=== PATIENT | female | born 1990 | race Caucasian/White ===

== ENCOUNTER 2018-02-26 00:07 | Emergency (ER) | payer OTHER ==
[~2018-02-26] VITALS: Ht 167.6 cm; Wt 75.0 kg
[2018-02-26 00:16] VITALS: BP 126/82; PULSE 112; RESP 12; TEMP 98.6
--- NOTE | 2018-02-26 00:26 | PD ---
HPI Chief Complaint: Suicide Ideation/Attempt Time Seen by Provider: 00:23 Travel History International Travel<30 days: No Contact w/Intl Traveler<30days: No Traveled to known affect area: No History of Present Illness HPI This patient was examined in the presence of the nurse at all times. 27-year- old female presents under Mccarty act initiated by the Police Department. According to her paperwork, "made suicidal statements to this officer and took 12 pills to attempt to take her life." Patient reports that she drank 5 beers tonight and she took 12 [id number] tablets. She reports that 6 of them were similar to Midol and then 6 of them were of an unknown medication over-the- counter. She took them at approximately 10:45 PM this evening in an attempt to kill herself. She reports that she tried to overdose once before, approximately 1 year ago, was not evaluated at that time. Symptoms are moderate , no obvious aggravating or relieving factors, onset unknown. She has no other complaints at this time. PFSH Past Medical History Hx Anticoagulant Therapy: No Cardiovascular Problems: No Chemotherapy: No Cerebrovascular Accident: No Developmental Delay: No Diabetes: No Diminished Hearing: No Respiratory: No Immunizations Current: Yes ?: Not : 1 Para: 1 Past Surgical History Section: Yes Hysterectomy: No Social History Alcohol Use: No Tobacco Use: No Substance Use: No Allergies-Medications (Allergen,Severity, Reaction): Coded Allergies: No Known Allergies (Verified Adverse Reaction, Unknown, 02/26/18) Reported Meds & Prescriptions Reported Meds & Active Scripts Active No Active Prescriptions or Reported Medications Review of Systems Except as stated in HPI: all other systems reviewed are Neg Physical Exam Narrative GENERAL: Well-developed well-nourished female no acute distress answering questions appropriately. SKIN: Warm and dry. HEAD: Atraumatic. Normocephalic. EYES: Pupils equal and round. No scleral icterus. No injection or drainage. ENT: No nasal bleeding or discharge. Mucous membranes pink and moist. NECK: Trachea midline. No JVD. CARDIOVASCULAR: Regular rate and rhythm. No murmur appreciated. RESPIRATORY: No accessory muscle use. Clear to auscultation. Breath sounds equal bilaterally. GASTROINTESTINAL: Abdomen soft, non-tender, nondistended. Hepatic and splenic margins not palpable. MUSCULOSKELETAL: No obvious deformities. No clubbing. No cyanosis. No edema. NEUROLOGICAL: Awake and alert. No obvious cranial nerve deficits. Motor grossly within normal limits. Normal speech. Data Data Last Documented VS Vital Signs Date Time Temp Pulse Resp B/P (MAP) Pulse Ox O2 Delivery O2 Flow Rate FiO2 02/26/18 00:41 Room Air 02/26/18 00:16 98.6 112 12 126/82 (97) Orders Orders Complete Blood Count With Diff (02/26/18 00:15) Comprehensive Metabolic Panel (02/26/18 00:15) Ed Urine Pregnancytest Poc (02/26/18 00:15) Psych Screen (02/26/18 00:15) Diet Regular Basic (02/26/18 Breakfast) Drug Screen, Random Urine (02/26/18 00:15) Alcohol (Ethanol) (02/26/18 00:15) Salicylates (Aspirin) (02/26/18 00:15) Tylenol (Acetaminophen) (02/26/18 00:15) Electrocardiogram (02/26/18 ) Electrocardiogram (02/26/18 ) Ecg Monitoring (02/26/18 00:26) ^ Sitter (02/26/18 00:31) Tylenol (Acetaminophen) (02/26/18 04:30) Salicylates (Aspirin) (02/26/18 04:30) Labs Laboratory Tests Test 02/26/18 00:10 02/26/18 00:30 02/26/18 04:07 Urine Opiates Screen NEG Urine Barbiturates Screen NEG Urine Amphetamines Screen NEG Urine Benzodiazepines Screen NEG Urine Cocaine Screen NEG Urine Cannabinoids Screen NEG White Blood Count 6.8 TH/MM3 Red Blood Count 4.52 MIL/MM3 Hemoglobin 14.1 GM/DL Hematocrit 41.5 % Mean Corpuscular Volume 91.8 FL Mean Corpuscular Hemoglobin 31.2 PG Mean Corpuscular Hemoglobin Concent 34.0 % Red Cell Distribution Width 13.5 % Platelet Count 286 TH/MM3 Mean Platelet Volume 7.3 FL Neutrophils (%) (Auto) 54.8 % Lymphocytes (%) (Auto) 36.7 % Monocytes (%) (Auto) 7.1 % Eosinophils (%) (Auto) 1.0 % Basophils (%) (Auto) 0.4 % Neutrophils # (Auto) 3.7 TH/MM3 Lymphocytes # (Auto) 2.5 TH/MM3 Monocytes # (Auto) 0.5 TH/MM3 Eosinophils # (Auto) 0.1 TH/MM3 Basophils # (Auto) 0.0 TH/MM3 CBC Comment DIFF FINAL Differential Comment Blood Urea Nitrogen 12 MG/DL Creatinine 0.69 MG/DL Random Glucose 118 MG/DL Total Protein 8.0 GM/DL Albumin 4.4 GM/DL Calcium Level 8.8 MG/DL Alkaline Phosphatase 49 U/L Aspartate Amino Transf (AST/SGOT) 12 U/L Alanine Aminotransferase (ALT/SGPT) 20 U/L Total Bilirubin 0.5 MG/DL Sodium Level 143 MEQ/L Potassium Level 3.6 MEQ/L Chloride Level 108 MEQ/L Carbon Dioxide Level 22.3 MEQ/L Anion Gap 13 MEQ/L Estimat Glomerular Filtration Rate 101 ML/MIN Salicylates Level 3.1 MG/DL 6.6 MG/DL Acetaminophen Level LESS THAN 2.0 MCG/ML 4.8 MCG/ML Ethyl Alcohol Level 200 MG/DL MDM Medical Decision Making Medical Screen Exam Complete: Yes Emergency Medical Condition: Yes Medical Record Reviewed: Yes Differential Diagnosis Major depressive disorder, depressive disorder not otherwise specified, bipolar disorder, acute psychosis, substance-induced mood disorder, adjustment reaction Narrative Course 27-year-old female presents under [place] act for psychiatric evaluation. She took 12 [id number] tablets at approximately 10:45 PM this evening in an attempt to kill herself. 6 of them she says are similar to Midol and 6 of them were of an unknown medication. The patient was placed on ECG monitoring pulse oximetry. A 12-lead EKG will be obtained. EKG reveals sinus tachycardia with a rate of 110, normal QT interval. Lab work will be obtained. Lab work reveals an alcohol level of 200. Initial Tylenol and salicylate levels are negative. A 4 hour repeat Tylenol level was obtained and it is 4.8 which is far below the level that would require treatment. The patient is medically cleared for psychiatric disposition. Diagnosis Primary Impression: Medical clearance for psychiatric admission Additional Impression: Alcohol abuse Scripts No Active Prescriptions or Reported Meds Arron Null Feb 26, 2018 00:26
[2018-02-26 00:41] LABS: AUTOMATED NEUTROPHIL # 3.7 TH/MM3 (1.8-7.7); BASOPHIL % 0.4 % (0.0-2.0); EOSINOPHIL # 0.1 TH/MM3 (0-0.4); HEMATOCRIT 41.5 % (35.0-46.0); HEMOGLOBIN 14.1 GM/DL (11.6-15.3); LYMPH % 36.7 % (9.0-44.0); LYMPHOCYTE # 2.5 TH/MM3 (1.0-4.8); MEAN CELL VOLUME 91.8 FL (80.0-100.0); MEAN CORPUSCULAR HEMOGLOBIN 31.2 PG (27.0-34.0); MEAN PLATELET VOLUME 7.3 FL (7.0-11.0); MONO % 7.1 % (0.0-8.0); MONOCYTE # 0.5 TH/MM3 (0-0.9); NEUT % 54.8 % (16.0-70.0); PLATELET COUNT 286 TH/MM3 (150-450); RED BLOOD COUNT 4.52 MIL/MM3 (4.00-5.30); RED CELL DISTRIBUTION WIDTH 13.5 % (11.6-17.2); WHITE BLOOD COUNT 6.8 TH/MM3 (4.0-11.0)
[2018-02-26 00:59] LABS: ALBUMIN 4.4 GM/DL (3.4-5.0); ALT (GPT) 20 U/L (10-53); AST (GOT) 12 U/L (15-37); BICARBONATE 22.3 MEQ/L (21.0-32.0); BLOOD UREA NITROGEN 12 MG/DL (7-18); CALCIUM 8.8 MG/DL (8.5-10.1); CHLORIDE 108 MEQ/L (98-107); CREATININE 0.69 MG/DL (0.50-1.00); GLOMERULAR FILTRATION RATE 101 ML/MIN (>89); GLUCOSE,RANDOM 118 MG/DL (74-106); SODIUM (NA) 143 MEQ/L (136-145)
[2018-02-26 01:02] LABS: ACETAMINOPHEN LESS THAN 2.0 MCG/ML (10.0-30.0); ALKALINE PHOSPHATASE 49 U/L (45-117); TOTAL BILIRUBIN ADULT 0.5 MG/DL (0.2-1.0)
[2018-02-26 06:20] VITALS: BP 119/68; PULSE 86; RESP 16; O2SAT 100
[2018-02-26 08:16] VITALS: BP 125/81; PULSE 91; RESP 18; O2SAT 98
[2018-02-26 12:23] LABS: AST (GOT) 13 U/L (15-37); BICARBONATE 21.1 MEQ/L (21.0-32.0); BLOOD UREA NITROGEN 10 MG/DL (7-18); CALCIUM 9.1 MG/DL (8.5-10.1); CHLORIDE 107 MEQ/L (98-107); CREATININE 0.71 MG/DL (0.50-1.00); GLOMERULAR FILTRATION RATE 97 ML/MIN (>89); GLUCOSE,RANDOM 102 MG/DL (74-106); SODIUM (NA) 140 MEQ/L (136-145)
[2018-02-26 12:24] LABS: ALT (GPT) 21 U/L (10-53)
[2018-02-26 12:26] LABS: ALKALINE PHOSPHATASE 50 U/L (45-117); TOTAL BILIRUBIN ADULT 0.5 MG/DL (0.2-1.0); TOTAL PROTEIN 7.7 GM/DL (6.4-8.2)
[2018-02-26 12:28] LABS: ACETAMINOPHEN LESS THAN 2.0 MCG/ML (10.0-30.0)
[2018-02-26 12:30] VITALS: BP 116/71; PULSE 71; RESP 18; O2SAT 97
--- NOTE | 2018-02-26 12:40 | PD ---
History of Present Illness Chief Complaint: Suicide Ideation/Attempt Time Seen by Provider: 11:40 Travel History International Travel<30 Days: No Contact w/Intl Traveler<30days: No Known affected area: No Legal Status Legal Status: Mccarty Act Mccarty Act Signed By: Chantal Solis History of Present Illness: History of Present Illness HPI 27-year-old, single, female, employed as a health care entry level recruiter, 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 Patient admitted to ED provider that she drank 5 beers and took 12 pwht-[id number] tablets of which 6 were similar to Midol and 6 where of an unknown OTC medication. The patient was medically cleared after her acetaminophen levels trended down to less than 2. Her blood alcohol level on arrival was 200. The patient was allowed to sober up clinically in secure environment. Nurses report state that the patient has not exhibited any suicidal behaviors. Electronic medical record is reviewed. No previous contact with [facility] psychiatry. Patient is seen. She is clinically sober. There is no evidence of any withdrawal symptoms. She is alert and cooperative. Speech is clear and logical. Adequate eye contact. Affect is tearful at times. Mood is sad. States that she is in the middle of a separation from her boyfriend of 8 years and is experiencing some stress related to that. She also states that when she drinks alcohol she tends to act on her impulsive thoughts. States that last night her and her boyfriend had been arguing about the separation. She does not state that she had planned to harm herself or that she has any plans on doing so. She states that she loves her children and would not do something like that to them. The patient admits to feeling anxious at times as well. She has recently started seeing a therapist to help her manage some of her feelings. There is no evidence of any psychosis, no eve, no hypomania. She is future oriented with adequate protective factors. [facility] Past Medical History Medical History: Denies Significant Hx Hx Anticoagulant Therapy: No Cardiovascular Problems: No Chemotherapy: No Cerebrovascular Accident: No Developmental Delay: No Diabetes: No Diminished Hearing: No Respiratory: No Immunizations Current: Yes Tetanus Vaccination: Unknown Influenza Vaccination: No ?: Not : 1 Para: 1 Past Surgical History Surgical History: No Previous Surgery Section: Yes Hysterectomy: No Psychiatric History Psychiatric History Hx Psychiatric Treatment: No previous psychiatric treatment. No previous suicide attempts. No history of self-injurious behavior. Has recently begun to see a therapist. History of Inpatient Treatment: No Guns or firearms in home: No Social History Born and raised in [place]. Moved to [place] 13 years ago. She is in a relationship for the past 8 years. She has a 8-year-old and a 3-year-old child. She works as a healthcare entry level recruiter. Both of her parents live in [place]. Reports has a good network of friends were supportive. Hx Alcohol Use: Yes (Denies that she drinks every day but admits that when she drinks she gets drunk.) Hx Tobacco Use: No Hx Substance Use: No Substance Use Type: Alcohol Hx of Substance Use Treatment: No Family Psychiatric History Negative Allergies-Medications (Allergen,Severity, Reaction): Coded Allergies: No Known Allergies (Verified Adverse Reaction, Unknown, 02/26/18) Reported Meds & Prescriptions Reported Meds & Active Scripts Active No Active Prescriptions or Reported Medications Review of Systems Psychiatric: COMPLAINS OF: Anxiety, Depression Except as stated in HPI: all other systems reviewed are Neg Mental Status Examination Appearance: Appropriate (Casual and neat. Her nails are nicely manicured.) Consciousness: Alert Orientation: x4 Motor Activity: Normal gait Speech: Unremarkable Language: Adequate Fund of Knowledge: Adequate Attention and Concentration: Adequate Memory: Unremarkable Mood: Sad, Anxious Affect: Appropriate Thought Process & Associations: Intact, Logical, Goal directed Thought Content: Appropriate Hallucination Type: None Delusion Type: None Suicidal Ideation: No Suicidal Plan: No Suicidal Intention: No Homicidal Ideation: No Homicidal Plan: No Homicidal Intention: No Insight: Adequate Judgment: Adequate MDM Medical Decision Making Medical Record Reviewed: Yes Assessment/Plan 27-year-old, single, female, employed as a health care entry level recruiter, 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 Patient admitted to ED provider that she drank 5 beers and took 12 arha-lfn-tdyyjfb tablets of which 6 were similar to Midol and 6 where of an unknown OTC medication. The patient was allowed to sober up clinically. After she was clinically sober she did not present evidence of unstable mental illness as defined under the Mccarty act. There is no suicidal or homicidal ideation, intent or plan. The patient is future oriented with adequate protective factors. She is requesting to be discharged. I have counseled her on continuing with her outpatient therapy treatment. I have also counseled her on abstinence from alcohol. Supportive interventions are provided. Recommended the anxiety workbook. The patient does not want to consider medications at this time. The Mccarty act as lifted. Psychiatric clear for discharge from the ED. Orders Orders Complete Blood Count With Diff (02/26/18 00:15) Comprehensive Metabolic Panel (02/26/18 00:15) Ed Urine Pregnancytest Poc (02/26/18 00:15) Psych Screen (02/26/18 00:15) Diet Regular Basic (02/26/18 Breakfast) Drug Screen, Random Urine (02/26/18 00:15) Alcohol (Ethanol) (02/26/18 00:15) Salicylates (Aspirin) (02/26/18 00:15) Tylenol (Acetaminophen) (02/26/18 00:15) Electrocardiogram (02/26/18 ) Ecg Monitoring (02/26/18 00:26) ^ Sitter (02/26/18 00:31) Tylenol (Acetaminophen) (02/26/18 04:30) Salicylates (Aspirin) (02/26/18 04:30) Comprehensive Metabolic Panel (02/26/18 11:41) Tylenol (Acetaminophen) (02/26/18 11:41) Results Vital Signs Date Time Temp Pulse Resp B/P (MAP) Pulse Ox O2 Delivery O2 Flow Rate FiO2 02/26/18 08:16 91 18 125/81 (96) 98 Room Air 02/26/18 06:20 86 16 119/68 (85) 100 Room Air 02/26/18 00:41 Room Air 02/26/18 00:16 98.6 112 12 126/82 (97) Laboratory Tests Test 02/26/18 00:10 02/26/18 00:30 02/26/18 04:07 02/26/18 11:50 Urine Opiates Screen NEG Urine Barbiturates Screen NEG Urine Amphetamines Screen NEG Urine Benzodiazepines Screen NEG Urine Cocaine Screen NEG Urine Cannabinoids Screen NEG White Blood Count 6.8 Red Blood Count 4.52 Hemoglobin 14.1 Hematocrit 41.5 Mean Corpuscular Volume 91.8 Mean Corpuscular Hemoglobin 31.2 Mean Corpuscular Hemoglobin Concent 34.0 Red Cell Distribution Width 13.5 Platelet Count 286 Mean Platelet Volume 7.3 Neutrophils (%) (Auto) 54.8 Lymphocytes (%) (Auto) 36.7 Monocytes (%) (Auto) 7.1 Eosinophils (%) (Auto) 1.0 Basophils (%) (Auto) 0.4 Neutrophils # (Auto) 3.7 Lymphocytes # (Auto) 2.5 Monocytes # (Auto) 0.5 Eosinophils # (Auto) 0.1 Basophils # (Auto) 0.0 CBC Comment DIFF FINAL Differential Comment Blood Urea Nitrogen 12 10 Creatinine 0.69 0.71 Random Glucose 118 102 Total Protein 8.0 7.7 Albumin 4.4 4.0 Calcium Level 8.8 9.1 Alkaline Phosphatase 49 50 Aspartate Amino Transf (AST/SGOT) 12 13 Alanine Aminotransferase (ALT/SGPT) 20 21 Total Bilirubin 0.5 0.5 Sodium Level 143 140 Potassium Level 3.6 3.8 Chloride Level 108 107 Carbon Dioxide Level 22.3 21.1 Anion Gap 13 12 Estimat Glomerular Filtration Rate 101 97 Salicylates Level 3.1 6.6 Acetaminophen Level LESS THAN 2.0 4.8 LESS THAN 2.0 Ethyl Alcohol Level 200 Diagnosis Primary Impression: Adjustment disorder Additional Impression: Alcohol abuse Psychiatrically Cleared: Yes Med/ Other Pt Specific Info: No Meds Exist/No RX given Prescriptions No Active Prescriptions or Reported Meds Disposition: 01 DISCHARGE HOME Condition: Stable Problem Qualifiers Primary Impression: Adjustment disorder Qualified Codes: F43.23 - Adjustment disorder with mixed anxiety and depressed mood Neelima Carbajal Feb 26, 2018 12:40
--- NOTE | 2018-02-26 13:03 | PD ---
Physical Exam Narrative GENERAL: SKIN: Warm and dry. HEAD: Atraumatic. Normocephalic. EYES: Pupils equal and round. No scleral icterus. No injection or drainage. ENT: No nasal bleeding or discharge. Mucous membranes pink and moist. NECK: Trachea midline. No JVD. CARDIOVASCULAR: Regular rate and rhythm. RESPIRATORY: No accessory muscle use. Clear to auscultation. Breath sounds equal bilaterally. GASTROINTESTINAL: Abdomen soft, non-tender, nondistended MUSCULOSKELETAL: Extremities without clubbing, cyanosis, or edema. No obvious deformities. NEUROLOGICAL: Awake and alert. No obvious cranial nerve deficits. Motor grossly within normal limits. Five out of 5 muscle strength in the arms and legs. Normal speech. PSYCHIATRIC: Appropriate mood and affect; insight and judgment normal. Data Data Last Documented VS Vital Signs Date Time Temp Pulse Resp B/P (MAP) Pulse Ox O2 Delivery O2 Flow Rate FiO2 02/26/18 08:16 91 18 125/81 (96) 98 Room Air 02/26/18 00:16 98.6 Orders Orders Complete Blood Count With Diff (02/26/18 00:15) Comprehensive Metabolic Panel (02/26/18 00:15) Ed Urine Pregnancytest Poc (02/26/18 00:15) Psych Screen (02/26/18 00:15) Diet Regular Basic (02/26/18 Breakfast) Drug Screen, Random Urine (02/26/18 00:15) Alcohol (Ethanol) (02/26/18 00:15) Salicylates (Aspirin) (02/26/18 00:15) Tylenol (Acetaminophen) (02/26/18 00:15) Electrocardiogram (02/26/18 ) Ecg Monitoring (02/26/18 00:26) ^ Sitter (02/26/18 00:31) Tylenol (Acetaminophen) (02/26/18 04:30) Salicylates (Aspirin) (02/26/18 04:30) Comprehensive Metabolic Panel (02/26/18 11:41) Tylenol (Acetaminophen) (02/26/18 11:41) Labs Laboratory Tests Test 02/26/18 00:10 02/26/18 00:30 02/26/18 04:07 02/26/18 11:50 Urine Opiates Screen NEG Urine Barbiturates Screen NEG Urine Amphetamines Screen NEG Urine Benzodiazepines Screen NEG Urine Cocaine Screen NEG Urine Cannabinoids Screen NEG White Blood Count 6.8 TH/MM3 Red Blood Count 4.52 MIL/MM3 Hemoglobin 14.1 GM/DL Hematocrit 41.5 % Mean Corpuscular Volume 91.8 FL Mean Corpuscular Hemoglobin 31.2 PG Mean Corpuscular Hemoglobin Concent 34.0 % Red Cell Distribution Width 13.5 % Platelet Count 286 TH/MM3 Mean Platelet Volume 7.3 FL Neutrophils (%) (Auto) 54.8 % Lymphocytes (%) (Auto) 36.7 % Monocytes (%) (Auto) 7.1 % Eosinophils (%) (Auto) 1.0 % Basophils (%) (Auto) 0.4 % Neutrophils # (Auto) 3.7 TH/MM3 Lymphocytes # (Auto) 2.5 TH/MM3 Monocytes # (Auto) 0.5 TH/MM3 Eosinophils # (Auto) 0.1 TH/MM3 Basophils # (Auto) 0.0 TH/MM3 CBC Comment DIFF FINAL Differential Comment Blood Urea Nitrogen 12 MG/DL 10 MG/DL Creatinine 0.69 MG/DL 0.71 MG/DL Random Glucose 118 MG/DL 102 MG/DL Total Protein 8.0 GM/DL 7.7 GM/DL Albumin 4.4 GM/DL 4.0 GM/DL Calcium Level 8.8 MG/DL 9.1 MG/DL Alkaline Phosphatase 49 U/L 50 U/L Aspartate Amino Transf (AST/SGOT) 12 U/L 13 U/L Alanine Aminotransferase (ALT/SGPT) 20 U/L 21 U/L Total Bilirubin 0.5 MG/DL 0.5 MG/DL Sodium Level 143 MEQ/L 140 MEQ/L Potassium Level 3.6 MEQ/L 3.8 MEQ/L Chloride Level 108 MEQ/L 107 MEQ/L Carbon Dioxide Level 22.3 MEQ/L 21.1 MEQ/L Anion Gap 13 MEQ/L 12 MEQ/L Estimat Glomerular Filtration Rate 101 ML/MIN 97 ML/MIN Salicylates Level 3.1 MG/DL 6.6 MG/DL Acetaminophen Level LESS THAN 2.0 MCG/ML 4.8 MCG/ML LESS THAN 2.0 MCG/ML Ethyl Alcohol Level 200 MG/DL [facility] Medical Record Reviewed: Yes Supervised Visit with [facility]: No Differential Diagnosis Patient was seen and evaluated thoroughly by the psychiatric team, and then lifted the Mccarty act and stated that this patient had those symptoms and made those comments while under the influence of alcohol. Now that she is sober she is not suicidal nor has any homicidal ideation or any types of plan. This has been corroborated by the psychiatric team and I am simply in the process of providing discharge information for the patient. Diagnosis Primary Impression: Medical clearance for psychiatric admission Additional Impression: Alcohol abuse Referrals: Cathy Washington for help in detox process Patient Instructions: General Instructions Additional Instruction: follow up with your therapist for further evaluation and care. Scripts No Active Prescriptions or Reported Meds Disposition: 01 DISCHARGE HOME Condition: Stable Duy Flores MD Feb 26, 2018 13:03
--- NOTE | 2018-02-26 15:15 | EKG ---
Date Performed: 02/26/2018 Time Performed: 00:45:26 PTAGE: 27 years EKG: SINUS TACHYCARDIA ABNORMAL RHYTHM ECG NO PREVIOUS TRACING DOCTOR: Arle[place] Interpretating Date/Time 02/26/2018 15:15:19
== END 2018-02-26 13:24 | disposition home or self-care (01) ==
LOC: NEPD 00:07
DX: F10.10 Alcohol abuse, uncomplicated (principal); Y90.7 Blood alcohol level of 200-239 mg/100 ml; T39.1X2A Poisoning by 4-Aminophenol derivatives, intentional self-harm, initial encounter; F43.20 Adjustment disorder, unspecified; R00.0 Tachycardia, unspecified; R94.31 Abnormal electrocardiogram [ECG] [EKG]
CPT/HCPCS: 80053; 80307; 84703; 85025; 93005